=== PATIENT | male | born 1970 | race Hispanic/Latino ===

== ENCOUNTER 2019-04-11 07:18 | Emergency (ER) | payer BC ==
[~2019-04-11] VITALS: Ht 180.3 cm; Wt 89.8 kg
[2019-04-11] MEDS ORDERED: ACETAMINOPHEN 325 MG TAB ONE (07:36)
[2019-04-11] MEDS ORDERED: ACETAMINOPHEN 325 MG TAB PO ONE (07:45)
[2019-04-11 08:28] LABS: INFLUENZAE A&B ANTIGEN (RAPID) NEGATIVE (NEGATIVE)
[2019-04-11 08:29] LABS: STREPTOCOCCUS GRP A ANTIGEN POSITIVE (NEGATIVE)
[2019-04-11] MEDS ORDERED: PENICILLIN G BENZATHINE LA 1.2 MU TBX IM STA (08:35)
--- NOTE | 2019-04-11 09:27 | Diagnostic Imaging Report ---
EXAMINATION: CHEST 2 VIEWS INDICATION: Cough COMPARISON: None FINDINGS: LINES/TUBES:None LUNGS:The lungs are well-inflated. No focal consolidation or pulmonary edema. PLEURA:No pleural effusion or pneumothorax. MEDIASTINUM:The cardiomediastinal silhouette appears normal in size and shape. BONES/SOFT TISSUES:No acute osseous injury. ABDOMEN:No free air under the diaphragm. IMPRESSION: No focal pneumonia or pulmonary edema. Signed by: Divya Gaspar MD on 04/11/2019 9:24 AM
== END 2019-04-11 09:55 | disposition home or self-care (01) ==
LOC: ER 07:18
DX: R50.9 Fever, unspecified (principal); R05 Cough; J02.0 Streptococcal pharyngitis; J20.9 Acute bronchitis, unspecified
CPT/HCPCS: 71046; 83518; 87400; 99283; J0561